=== PATIENT | female | born 1990 ===

== ENCOUNTER 2017-01-09 23:09 | Emergency (ER) | payer MEDICAID ==
[2017-01-09 23:31] VITALS: PULSE 79; RESP 18; TEMP 98; O2SAT 99
[2017-01-09] MEDS ORDERED: Sodium Chloride 0.9% 1,000 ML IV STA (23:42)
--- NOTE | 2017-01-09 23:43 | ED PDOC ---
HPI: Female Pain Time Seen by Provider: 01/09/17 23:18 Chief Complaint (Nursing): Female Genitourinary Chief Complaint (Provider): Vaginal bleeding History Per: Patient Additional Complaint(s): Pt is a 26 yo female, no PMH, currently at ~ 12 weeks gestation according to Pt, brought to ED by EMS for evaluation of heavy vaginal bleeding since 19: 00 tonight. Pt states her DISINTEGRATOR OPERATOR is Dr. Dong. US done 2 week sago showed "empty sac." Pt reports that she was advised bleeding and cramping would likely start. Pt reports bleeding was so heavy tonight she almost "passed out." Pt did not loose consciousness, no fall. Pt reports bleeding and cramping are minimal at this time. Pt declined analgesics Past Medical History Reviewed: Nursing Documentation, Vital Signs Vital Signs: Last Vital Signs Temp 98.0 F 01/09/17 23:27 Pulse 79 01/09/17 23:27 Resp 18 01/09/17 23:27 BP 88/57 L 01/09/17 23:27 Pulse Ox 99 01/09/17 23:27 - Medical History PMH: No Chronic Diseases - Surgical History Surgical History: No Surg Hx - Family History Family History: States: No Known Family Hx - Living Arrangements Living Arrangements: With Family - Social History Current smoker - smoking cessation education provided: No Alcohol: Social Drugs: Denies - Allergies Allergies/Adverse Reactions: Allergies Allergy/AdvReac Type Severity Reaction Status Date / Time No Known Allergies Allergy Verified 01/09/17 23:41 Review of Systems ROS Statement: Except As Marked, All Systems Reviewed And Found Negative Genitourinary Female: Positive for: Vaginal Bleeding Physical Exam - Reviewed Nursing Documentation Reviewed: Yes Vital Signs Reviewed: Yes - Physical Exam Appears: Positive for: Well, Non-toxic, No Acute Distress Head Exam: Positive for: ATRAUMATIC, NORMAL INSPECTION, NORMOCEPHALIC Skin: Positive for: Normal Color, Warm, DRY Eye Exam: Positive for: EOMI, Normal appearance, PERRL ENT: Positive for: Normal ENT Inspection Neck: Positive for: Normal, Painless ROM Cardiovascular/Chest: Positive for: Regular Rate, Rhythm Respiratory: Positive for: CNT, Normal Breath Sounds Gastrointestinal/Abdominal: Positive for: Normal Exam, Bowel Sounds, Soft Pelvic Exam: Positive for: External Exam Normal, Blood (minimal) Back: Positive for: Normal Inspection Extremity: Positive for: Normal ROM Neurologic/Psych: Positive for: Alert, Oriented - Laboratory Results Result Diagrams: 01/09/17 23:40 01/09/17 23:40 - ECG O2 Sat by Pulse Oximetry: 99 Medical Decision Making Medical Decision Making: IV access established and treatment initiated with IVF. Analgesics declined at this time Labs resulted and reviewed with Pt who demonstrated full understanding Hgb 12.5 Beta 4665 US:IMPRESSION: 1. No intrauterine gestation. DDX: Early IUP, missed , ectopic . 2. Mildly thickened, heterogeneous endometrium. RPOC not entirely excluded. Pt educated on results and demonstrated full understanding. No abdominal discomfort on re-eval, abdomen non tender Pt notes bleeding minimal as well. Stable for discharge at this time. Importance of follow up with OB was stressed. Advised to return if at anytime condition worsens Disposition - Clinical Impression Clinical Impression: Miscarriage - Patient ED Disposition Is Patient to be Admitted: No - Disposition Disposition: Routine/Home Disposition Time: 03:00 Condition: STABLE Additional Instructions: Follow up with DISINTEGRATOR OPERATOR return to ED if at anytime bleeding or cramping becomes severe Instructions: Spontaneous Miscarriage (ED) Forms: [employer] ([place]) - POA Present On Arrival: None
[2017-01-09 23:56] LABS: BASO # 0.1 K/uL (0.0-0.2); BASO % 0.5 % (0.0-2.0); EOS # 0.1 K/uL (0.0-0.7); HEMATOCRIT 37.5 % (34.0-47.0); LYMPH # 3.1 K/uL (1.0-4.3); LYMPH % 22.2 % (20.0-40.0); MEAN CORPUSCULAR HEMOGLOBIN 31.2 pg (27.0-31.0); MEAN CORPUSCULAR HGB CONC 33.2 g/dL (33.0-37.0); MEAN PLATELET VOLUME 7.9 fl (7.2-11.7); MONO # 0.7 K/uL (0.0-0.8); MONO % 5.3 % (0.0-10.0); NEUT # 9.8 K/uL (1.8-7.0); WHITE BLOOD COUNT 13.7 K/uL (4.8-10.8)
[2017-01-10 00:05] LABS: ALB/GLOB RATIO 1.2 (1.0-2.1); ALKALINE PHOSPHATASE 44 U/L (38-126); ALT/SGPT 25 U/L (9-52); AST/SGOT 21 U/L (14-36); BLOOD UREA NITROGEN 7 mg/dl (7-17); CARBON DIOXIDE 26 mmol/L (22-30); CHLORIDE 103 mmol/L (98-107); GFR AFRICAN-AMERICAN > 60; GLUCOSE,RANDOM 127 mg/dL (65-105); POTASSIUM 3.6 MMOL/L (3.6-5.0); SODIUM 136 mmol/l (132-148); TOTAL PROTEIN 7.5 G/DL (6.3-8.2)
[2017-01-10 01:10] LABS: PARTIAL THROMBOPLASTIN TIME 12.5 Seconds (25.6-37.1)
[2017-01-10 02:25] VITALS: BP 95/54
--- NOTE | 2017-01-10 17:15 | US ---
PROCEDURE: OB Pelvic Ultrasound HISTORY: heavy bleeding r/o retained producats COMPARISON: None available. FINDINGS: UTERUS: Uterus measures 7.4 x 3.2 x 4.8 cm. No intrauterine gestation. No uterine mass. Endometrium measures 5 mm in width. No endometrial fluid. CERVIX: Long and closed. No cervical abnormality seen. RIGHT OVARY: Measures 1.5 x 2.3 x 1.3 cm. No mass. Normal flow. LEFT OVARY: Measures 2.6 x 1.4 x 1.7 cm. No mass. Normal flow. FREE FLUID: None. OTHER FINDINGS: None. IMPRESSION: No intrauterine gestation. No evidence of retained products of conception Preliminary interpretation of this examination was reported by [facility] at 2:51 a.m. on 01/10/2017. There is concurrence of this report with the preliminary interpretation.
== END 2017-01-10 02:25 | disposition home or self-care (01) ==
LOC: H.ER 23:09
DX: O03.9 Complete or unspecified spontaneous abortion without complication (principal)
CPT/HCPCS: 76817; 80053; 84702; 85025; 85610; 85730; 86850; 86900; 96360; 99282; J7040